=== PATIENT | male | born 1990 | race Caucasian/White ===

== ENCOUNTER 2017-05-20 02:27 | Emergency (ER) | payer OTHER ==
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
[2017-05-20] MEDS ORDERED: 0.9 % SODIUM CHLORIDE 1,000 ML IV ONE (03:23)
[2017-05-20 03:28] LABS: BASOPHILS % 1.2 (0.0-1.5); MEAN CORPUSCULAR HEMOGLOBIN 31.1 pg (28.0-34.0); MEAN CORPUSCULAR VOLUME 92.6 fl (80.0-100.0); NEUTROPHILS # 2.1 # k/uL (1.4-7.7)
[2017-05-20] MEDS: 0.9 % SODIUM CHLORIDE 1,000 ML IV SCH (03:29)
[2017-05-20 03:41] LABS: eGFR (African) > 60; eGFR (Non-African) > 60
[2017-05-20 05:21] VITALS: BP 100/53
[2017-05-21 09:29] LABS: AMPHETAMINE NEGATIVE ng/mL (<1000); APPEARANCE,URINE CLEAR (CLEAR); BARBITURATES NEGATIVE ng/mL (<300); CANNABINOIDS NEGATIVE ng/mL (< 50); COCAINE NEGATIVE ng/mL (<150); COLOR,URINE YELLOW (YELLOW); METHAMPHETAMINE NEGATIVE ng/mL (<1000); METHYLENEDIOXYMETHAMPHETAMINE NEGATIVE ng/mL (<500); MORPHINE NEGATIVE ng/mL (<300); OCCULT BLOOD,URINE NEGATIVE (NEGATIVE); UROBILINOGEN URINE 0.2 Eu (0.2-1.0)
== END 2017-05-20 05:10 | disposition home or self-care (01) ==
LOC: ED 02:27
DX: F19.10 Other psychoactive substance abuse, uncomplicated (principal)
CPT/HCPCS: 80053; 85025; J7030; 80377; 81002; 96360; 99283; G0481; S1016